=== PATIENT | male | born 1935 | race Caucasian/White ===

== ENCOUNTER 2022-04-22 16:07 | Inpatient (IN) | payer MEDICARE ==
[2022-04-22] MEDS ORDERED: HYDROmorphone 0.5 MG/0.5 ML Syringe IM ONE (17:04)
[2022-04-22] MEDS ORDERED: Doxycycline 100 MG Cap PO ONE (17:52)
[2022-04-22] MEDS ORDERED: Gabapentin 100 MG Cap PO ONE (18:14)
[2022-04-22] MEDS ORDERED: Ketorolac 30 MG/ML SDV IM ONE (20:45)
[2022-04-22] MEDS ORDERED: Lidocaine 1% 5 ML VIAL INJECT ONE (21:35)
[2022-04-22] MEDS ORDERED: Sodium Chloride 0.9% 10 ML Syringe FLUSH PRN (21:54)
[2022-04-22] MEDS ORDERED: Promethazine 6.25 MG in Sodium Chloride 0.9% 50 ML IV PRN (22:26)
[2022-04-22] MEDS ORDERED: Albuterol/Ipratropium 3.0-0.5 MG/3 ML Neb Soln NEB PRN (22:26)
[2022-04-22] MEDS ORDERED: Ondansetron 4 MG Tab.DIS PO PRN (22:26)
[2022-04-22] MEDS ORDERED: oxyCODONE 5 MG Tab PO PRN (22:26)
[2022-04-22] MEDS ORDERED: Acetaminophen 325 MG Tab PO PRN (22:26)
[2022-04-22] MEDS ORDERED: Morphine 2 MG/ML SYRINGE IVPUSH PRN (22:26)
[2022-04-22 23:32] LABS: CORONAVIRUS COVID-19 NAA NEGATIVE (NEGATIVE)
[2022-04-23] MEDS ORDERED: Doxycycline 100 MG Cap PO SCH (02:00)
[2022-04-23] MEDS: Ketorolac 10 MG Tab PO SCH ×4 (02:10→20:35)
[2022-04-23] MEDS: Gabapentin 300 MG Cap PO SCH ×3 (09:49→20:35)
[2022-04-23] MEDS: Doxycycline 100 MG Cap PO SCH ×2 (09:49→20:35)
[2022-04-23] MEDS: Furosemide 20 MG Tab PO SCH (09:49)
[2022-04-23] MEDS: Pantoprazole 40 MG Tab.CR PO SCH (09:55)
[2022-04-23] MEDS: Cetirizine 10 MG Tab PO SCH (20:35)
[2022-04-24] MEDS: Ketorolac 10 MG Tab PO SCH ×4 (02:41→20:57)
[2022-04-24] MEDS: Pantoprazole 40 MG Tab.CR PO SCH (08:04)
[2022-04-24] MEDS: Gabapentin 300 MG Cap PO SCH ×3 (08:04→20:57)
[2022-04-24] MEDS: Doxycycline 100 MG Cap PO SCH ×2 (08:05→20:57)
[2022-04-24] MEDS: Furosemide 20 MG Tab PO SCH (08:06)
[2022-04-24] MEDS: Cetirizine 10 MG Tab PO SCH (20:57)
[2022-04-25] MEDS: Ketorolac 10 MG Tab PO SCH ×4 (02:36→20:18)
[2022-04-25] MEDS: Pantoprazole 40 MG Tab.CR PO SCH (09:00)
[2022-04-25] MEDS: Furosemide 20 MG Tab PO SCH (09:00)
[2022-04-25] MEDS: Gabapentin 300 MG Cap PO SCH ×3 (09:00→20:19)
[2022-04-25] MEDS: Doxycycline 100 MG Cap PO SCH ×2 (09:05→20:18)
[2022-04-25] MEDS: Cetirizine 10 MG Tab PO SCH (20:19)
[2022-04-26] MEDS: Ketorolac 10 MG Tab PO SCH ×4 (02:31→20:37)
[2022-04-26] MEDS: Doxycycline 100 MG Cap PO SCH ×2 (09:02→20:37)
[2022-04-26] MEDS: Pantoprazole 40 MG Tab.CR PO SCH (09:02)
[2022-04-26] MEDS: Gabapentin 300 MG Cap PO SCH ×3 (09:02→20:37)
[2022-04-26] MEDS: Furosemide 20 MG Tab PO SCH (09:02)
[2022-04-26] MEDS: Cetirizine 10 MG Tab PO SCH (20:37)
[2022-04-27] MEDS: Ketorolac 10 MG Tab PO SCH ×4 (02:51→20:22)
[2022-04-27] MEDS: Pantoprazole 40 MG Tab.CR PO SCH (08:20)
[2022-04-27] MEDS: Gabapentin 300 MG Cap PO SCH ×3 (08:20→20:23)
[2022-04-27] MEDS: Furosemide 20 MG Tab PO SCH (08:20)
[2022-04-27] MEDS: Doxycycline 100 MG Cap PO SCH ×2 (08:21→20:23)
[2022-04-27] MEDS: Cetirizine 10 MG Tab PO SCH (20:23)
[2022-04-28] MEDS: Ketorolac 10 MG Tab PO SCH (03:03)
[2022-04-28] MEDS: Furosemide 20 MG Tab PO SCH (08:51)
[2022-04-28] MEDS: Gabapentin 300 MG Cap PO SCH (08:51)
[2022-04-28] MEDS: Doxycycline 100 MG Cap PO SCH (08:51)
[2022-04-28] MEDS: Pantoprazole 40 MG Tab.CR PO SCH (08:51)
[2022-04-29] MEDS ORDERED: Pantoprazole 40 MG Tab.CR PO SCH (07:30)
== END 2022-04-28 14:20 | disposition home or self-care (01) | DRG 565 ==
LOC: JP.ED 16:07 → JP.MS 22:26
PROVIDERS: ADMIT Family Medicine; ATTEND Hospitalist
PROC: 0S9D3ZZ Drainage of Left Knee Joint, Percutaneous Approach (ICD-10-PCS; principal; 2022-04-22)
DX: M25.462 Effusion, left knee (principal); A69.20 Lyme disease, unspecified; M25.562 Pain in left knee; Z20.822 Contact with and (suspected) exposure to COVID-19; H91.90 Unspecified hearing loss, unspecified ear; T14.8XXD Other injury of unspecified body region, subsequent encounter; N42.9 Disorder of prostate, unspecified; Z66 Do not resuscitate; M17.12 Unilateral primary osteoarthritis, left knee; M19.179 Post-traumatic osteoarthritis, unspecified ankle and foot; S70.362A Insect bite (nonvenomous), left thigh, initial encounter; F03.90 Unspecified dementia, unspecified severity, without behavioral disturbance, psychotic disturbance, mood disturbance, and anxiety; Z85.828 Personal history of other malignant neoplasm of skin; Z79.899 Other long term (current) drug therapy; W57.XXXA Bitten or stung by nonvenomous insect and other nonvenomous arthropods, initial encounter
CPT/HCPCS: 0241U; 20610; 36415; 73700-LT; 80048; 80202; 84145; 84550; 85025; 85027; 86140; 86617; 86617-59; 86618; 87070; 87205; 87476; 89050; 89060; 96372; 97110-GP; 97161-GP; 97530-GP; 97535-GP; 99284; 99284-25; A9270-GY; J1170; J1885; J3370; J7050

== ENCOUNTER 2023-10-19 07:24 | Day surgery (SDC) | payer MEDICARE ==
[2023-10-19] MEDS ORDERED: Sodium Chloride 0.9% 10 ML Syringe FLUSH PRN (07:45)
== END 2023-10-19 09:14 | disposition home or self-care (01) ==
LOC: JP.SDS 07:24
PROVIDERS: ATTEND Ophthalmology
DX: H26.9 Unspecified cataract (principal)
CPT/HCPCS: 66984; J3490; V2632

== ENCOUNTER → 2023-11-02 | Day surgery (SDC) | payer MEDICARE ==
[~2023-11-02] MED LIST: Sodium Chloride 0.9% 10 ML Syringe FLUSH PRN
== END ==
LOC: JP.SDS 07:37
PROVIDERS: ATTEND Ophthalmology
DX: H26.9 Unspecified cataract (principal)
CPT/HCPCS: 66984; J3490; V2632

== ENCOUNTER 2023-11-14 20:09 | Inpatient (IN) | payer MEDICARE ==
[2023-11-14 21:59] LABS: BASOPHILS ABSOLUTE AUTO 0.04 K/uL (0.00-0.10); BASOPHILS PERCENT AUTO 0.4 % (0.1-1.3); EOSINOPHILS PERCENT AUTO 0.1 % (0.0-5.4); HEMATOCRIT 50.9 % (38.4-49.7); HEMOGLOBIN 17.4 g/dL (12.9-16.9); IMMATURE GRAN ABSOLUTE AUTO 0.05 K/uL (0.00-0.23); IMMATURE GRAN PERCENT AUTO 0.5 % (0.0-0.7); LYMPHOCYTES ABSOLUTE AUTO 1.44 K/uL (0.8-3.3); LYMPHOCYTES PERCENT AUTO 13.4 % (11.4-47.7); MEAN CORPUSCULAR HEMOGLOBIN 31.6 pg (31.6-35.5); MEAN CORPUSCULAR HGB CONC 34.2 g/dL (31.6-35.5); MEAN CORPUSCULAR VOLUME 92.4 fL (81.4-99.0); MONOCYTES ABSOLUTE AUTO 0.78 K/uL (0.20-0.90); MONOCYTES PERCENT AUTO 7.3 % (3.3-12.6); NEUTROPHILS ABSOLUTE AUTO 8.43 K/uL (1.0-7.6); NEUTROPHILS PERCENT AUTO 78.3 % (40.0-78.1); PLATELET COUNT,PLT 105 K/uL (130-375); RED BLOOD CELL COUNT 5.51 M/uL (4.14-5.76); WHITE BLOOD CELL COUNT,WBC 10.8 K/uL (3.2-11.0)
[2023-11-14 22:00] LABS: EOSINOPHILS ABSOLUTE AUTO 0.01 K/uL (0.00-0.40)
[2023-11-14] MEDS ORDERED: Sodium Chloride 0.9% 50 ML IV SCH (22:15)
[2023-11-14] MEDS ORDERED: Iopamidol 612 MG/ML 100 ML Bottle IV SCH (22:15)
[2023-11-14 22:29] LABS: ANION GAP 14.7 mmol/L (5.0-14.0); C-REACTIVE PROTEIN 5.86 mg/dL (<0.50); CALCIUM 8.4 mg/dL (8.5-10.1); EST CRCL DRUG DOSING (CG) 46.13 mL/min; POTASSIUM,K 4.7 mmol/L (3.6-5.2)
[2023-11-14 22:31] LABS: TROPONIN I HIGH SENSITIVITY 64.9 pg/mL (<=60.3)
[2023-11-14] MEDS ORDERED: Sodium Chloride 0.9% 1,000 ML IV ONE (22:47)
[2023-11-15 01:25] LABS: APPEARANCE,URINE CLEAR (CLEAR); BILIRUBIN,URINE NEGATIVE (NEGATIVE); COLOR,URINE YELLOW (YELLOW); GLUCOSE,URINE NEGATIVE (NEGATIVE); KETONES,URINE 15 mg/dL (NEGATIVE); LEUKOCYTE ESTERASE,URINE NEGATIVE (NEGATIVE); NITRITE,URINE NEGATIVE (NEGATIVE); OCCULT BLOOD,URINE TRACE-LYSED (NEGATIVE); PH,URINE 5.5 (5.0-8.0); PROTEIN,URINE NEGATIVE (NEGATIVE); UROBILINOGEN,URINE 0.2 EU/dL (0.2-1.0)
[2023-11-15 01:38] LABS: AMORPHOUS SEDIMENT,URINE NOT SEEN; BACTERIA,URINE FEW; EPITHELIAL CELLS,URINE FEW; MUCUS,URINE NOT SEEN; RBC,URINE 0-5 (0-5); WBC,URINE 0-5 (0-5)
[2023-11-15] MEDS ORDERED: Promethazine 6.25 MG in Sodium Chloride 0.9% 50 ML IV PRN (02:07)
[2023-11-15] MEDS ORDERED: Ondansetron 4 MG Tab.DIS PO PRN (02:07)
[2023-11-15] MEDS ORDERED: Ondansetron 4 MG/2 ML SDV IV PRN (02:07)
[2023-11-15] MEDS ORDERED: Morphine 2 MG/ML SYRINGE IVPUSH PRN (02:07)
[2023-11-15] MEDS ORDERED: Sodium Chloride 0.9% 1,000 ML IV SCH (02:15)
[2023-11-15] MEDS: oxyCODONE 5 MG Tab PO PRN ×4 (02:47→17:38)
[2023-11-15] MEDS: Sodium Chloride 0.9% 1,000 ML IV SCH ×4 (02:49→21:30)
[2023-11-15 08:15] LABS: CORONAVIRUS COVID-19 NAA NEGATIVE (NEGATIVE); INFLUENZA A NAA NEGATIVE (NEGATIVE); INFLUENZA B NAA NEGATIVE (NEGATIVE); RESPIRATORY SYNCYTIAL VIR NAA NEGATIVE (NEGATIVE)
[2023-11-15] MEDS: Acetaminophen 325 MG Tab PO PRN ×3 (08:49→17:40)
[2023-11-15 14:06] LABS: CALCIUM 7.7 mg/dL (8.5-10.1); EST CRCL DRUG DOSING (CG) 44.4 mL/min; POTASSIUM,K 4.2 mmol/L (3.6-5.2); TROPONIN I HIGH SENSITIVITY 59.9 pg/mL (<=60.3)
[2023-11-15 14:07] LABS: ANION GAP 20.2 mmol/L (5.0-14.0)
[2023-11-15] MEDS ORDERED: Adenosine 6 MG/2 ML SDV IVPUSH ONE ×3 (14:42→17:44)
[2023-11-15] MEDS: Docusate Sodium 100 MG Cap PO PRN (17:40)
[2023-11-15] MEDS ORDERED: Adenosine 6 MG/2 ML SDV ONE (17:46)
[2023-11-15] MEDS: Metoprolol Tartrate 25 MG Tab PO SCH (18:13)
[2023-11-15] MEDS ORDERED: Metoprolol Tartrate 5 MG/5 ML SDV IVPUSH ONE (18:25)
[2023-11-15] MEDS ORDERED: Metoprolol Tartrate 5 MG/5 ML SDV ONE (18:27)
[2023-11-16] MEDS: Metoprolol Tartrate 25 MG Tab PO SCH (01:51)
[2023-11-16] MEDS: Sodium Chloride 0.9% 1,000 ML IV SCH (05:23)
[2023-11-16 06:07] LABS: HEMATOCRIT 44.4 % (38.4-49.7); HEMOGLOBIN 14.8 g/dL (12.9-16.9); MEAN CORPUSCULAR HEMOGLOBIN 31.7 pg (31.6-35.5); MEAN CORPUSCULAR HGB CONC 33.3 g/dL (31.6-35.5); MEAN CORPUSCULAR VOLUME 95.1 fL (81.4-99.0); RED BLOOD CELL COUNT 4.67 M/uL (4.14-5.76); WHITE BLOOD CELL COUNT,WBC 6.2 K/uL (3.2-11.0)
[2023-11-16 06:38] LABS: ANION GAP 10.5 mmol/L (5.0-14.0); CALCIUM 7.5 mg/dL (8.5-10.1); CREATININE 0.9 mg/dL (0.8-1.3); EST CRCL DRUG DOSING (CG) 49.33 mL/min; POTASSIUM,K 4.3 mmol/L (3.6-5.2); PSA SCREEN 0.6 ug/L (0.0-4.0)
[2023-11-16] MEDS: Docusate Sodium 100 MG Cap PO PRN ×2 (07:24→17:12)
[2023-11-16] MEDS: Acetaminophen 325 MG Tab PO PRN ×3 (07:24→17:12)
[2023-11-16] MEDS: oxyCODONE 5 MG Tab PO PRN ×4 (07:37→21:33)
[2023-11-16] MEDS ORDERED: Metoprolol Succinate 25 MG Tab.ER PO SCH (09:00)
[2023-11-16] MEDS ORDERED: Metoprolol Tartrate 5 MG/5 ML SDV IVPUSH ONE ×2 (09:08→14:31)
[2023-11-16] MEDS ORDERED: Sodium Chloride 0.9% 1,000 ML IV SCH (13:27)
[2023-11-17] MEDS: Acetaminophen 325 MG Tab PO PRN ×5 (02:06→21:39)
[2023-11-17] MEDS: oxyCODONE 5 MG Tab PO PRN ×5 (02:06→21:39)
[2023-11-17 04:49] LABS: HEMATOCRIT 43.5 % (38.4-49.7); HEMOGLOBIN 14.4 g/dL (12.9-16.9); MEAN CORPUSCULAR HEMOGLOBIN 31.3 pg (31.6-35.5); MEAN CORPUSCULAR HGB CONC 33.1 g/dL (31.6-35.5); MEAN CORPUSCULAR VOLUME 94.6 fL (81.4-99.0); RED BLOOD CELL COUNT 4.6 M/uL (4.14-5.76); WHITE BLOOD CELL COUNT,WBC 5.7 K/uL (3.2-11.0)
[2023-11-17 06:06] LABS: CALCIUM 7.4 mg/dL (8.5-10.1); CREATININE 0.9 mg/dL (0.8-1.3); EST CRCL DRUG DOSING (CG) 49.33 mL/min
[2023-11-17] MEDS ORDERED: Metoprolol Succinate 25 MG Tab.ER PO SCH (09:00)
[2023-11-17] MEDS: Metoprolol Succinate 50 MG Tab.ER PO SCH (09:29)
[2023-11-17] MEDS: Polyethylene Glycol 3350 Powder 17 GM Packet PO SCH (09:38)
[2023-11-17] MEDS: Docusate Sodium 100 MG Cap PO PRN (17:05)
[2023-11-18] MEDS: Polyethylene Glycol 3350 Powder 17 GM Packet PO SCH (08:38)
[2023-11-18] MEDS: Metoprolol Succinate 50 MG Tab.ER PO SCH (08:38)
[2023-11-18] MEDS: Acetaminophen 325 MG Tab PO PRN (10:21)
[2023-11-18] MEDS: oxyCODONE 5 MG Tab PO PRN (10:21)
[2023-11-19 04:04] LABS: HEMATOCRIT 45.6 % (38.4-49.7); HEMOGLOBIN 15.9 g/dL (12.9-16.9); MEAN CORPUSCULAR HEMOGLOBIN 31.9 pg (31.6-35.5); MEAN CORPUSCULAR HGB CONC 34.9 g/dL (31.6-35.5); MEAN CORPUSCULAR VOLUME 91.6 fL (81.4-99.0); RED BLOOD CELL COUNT 4.98 M/uL (4.14-5.76); WHITE BLOOD CELL COUNT,WBC 6.3 K/uL (3.2-11.0)
[2023-11-19] MEDS: Metoprolol Succinate 50 MG Tab.ER PO SCH (08:22)
[2023-11-19] MEDS: Polyethylene Glycol 3350 Powder 17 GM Packet PO SCH (08:22)
[2023-11-19] MEDS: Acetaminophen 325 MG Tab PO PRN (08:24)
[2023-11-20] MEDS: oxyCODONE 5 MG Tab PO PRN (05:19)
[2023-11-20] MEDS: Acetaminophen 325 MG Tab PO PRN (05:19)
[2023-11-20] MEDS: Metoprolol Succinate 50 MG Tab.ER PO SCH (08:02)
[2023-11-20] MEDS: Polyethylene Glycol 3350 Powder 17 GM Packet PO SCH (08:02)
[2023-11-21] MEDS: Metoprolol Succinate 50 MG Tab.ER PO SCH (08:59)
[2023-11-21] MEDS: Polyethylene Glycol 3350 Powder 17 GM Packet PO SCH (08:59)
== END 2023-11-21 13:31 | DRG 184 ==
LOC: JP.ED 20:09 → JP.MS 11-15 02:01
PROVIDERS: ADMIT Family Medicine; ATTEND Hospitalist
DX: M62.82 Rhabdomyolysis (principal); S22.41XA Multiple fractures of ribs, right side, initial encounter for closed fracture; I47.10 Supraventricular tachycardia, unspecified; T79.6XXA Traumatic ischemia of muscle, initial encounter; F03.90 Unspecified dementia, unspecified severity, without behavioral disturbance, psychotic disturbance, mood disturbance, and anxiety; H91.90 Unspecified hearing loss, unspecified ear; I10 Essential (primary) hypertension; R79.89 Other specified abnormal findings of blood chemistry; Z87.81 Personal history of (healed) traumatic fracture; Z79.899 Other long term (current) drug therapy; Z91.81 History of falling; Z98.49 Cataract extraction status, unspecified eye; Z98.890 Other specified postprocedural states; Z11.52 Encounter for screening for COVID-19; W19.XXXA Unspecified fall, initial encounter
CPT/HCPCS: 0241U; 36415; 70450; 71260; 72125; 74177; 76377; 80048; 81001; 82550; 83605; 83735; 84484; 85025; 85027; 86140; 93005; 93010; 96360; 97110-GO; 97110-GP; 97162-GP; 97165-GO; 97530-GP; 97535-GO; 97535-GP; 99232; 99238; 99285; 99285-25; A9270-GY; G0103; J0153; J3490; J7030; Q9967; U0002

== ENCOUNTER 2024-07-27 12:56 | Emergency (ER) | payer MEDICARE ==
[2024-07-27 15:07] LABS: BASOPHILS ABSOLUTE AUTO 0.05 K/uL (0.00-0.10); BASOPHILS PERCENT AUTO 0.6 % (0.1-1.3); EOSINOPHILS ABSOLUTE AUTO 0.04 K/uL (0.00-0.40); EOSINOPHILS PERCENT AUTO 0.4 % (0.0-5.4); HEMATOCRIT 40.4 % (38.4-49.7); HEMOGLOBIN 14.1 g/dL (12.9-16.9); IMMATURE GRAN ABSOLUTE AUTO 0.05 K/uL (0.00-0.23); IMMATURE GRAN PERCENT AUTO 0.6 % (0.0-0.7); LYMPHOCYTES ABSOLUTE AUTO 1.53 K/uL (0.8-3.3); LYMPHOCYTES PERCENT AUTO 16.9 % (11.4-47.7); MEAN CORPUSCULAR HEMOGLOBIN 32.7 pg (31.6-35.5); MEAN CORPUSCULAR HGB CONC 34.9 g/dL (31.6-35.5); MEAN CORPUSCULAR VOLUME 93.7 fL (81.4-99.0); MONOCYTES PERCENT AUTO 13.3 % (3.3-12.6); NEUTROPHILS ABSOLUTE AUTO 6.17 K/uL (1.0-7.6); NEUTROPHILS PERCENT AUTO 68.2 % (40.0-78.1); PLATELET COUNT,PLT 135 K/uL (130-375); RED BLOOD CELL COUNT 4.31 M/uL (4.14-5.76)
[2024-07-27 15:27] LABS: ALANINE AMINOTRANSFERASE,ALT 81 U/L (12-78); ALBUMIN 3.2 g/dL (3.4-5.0); ALKALINE PHOSPHATASE 238 U/L (46-116); ANION GAP 11.1 mmol/L (5.0-14.0); ASPARTATE AMNIOTRANSFERASE,AST 66 U/L (15-37); BILIRUBIN TOTAL 0.8 mg/dL (0.2-1.0); BLOOD UREA NITROGEN,BUN 19 mg/dL (7-18); CALCIUM 9.2 mg/dL (8.5-10.1); CARBON DIOXIDE,CO2 26 mmol/L (21-32); CHLORIDE,CL 106 mmol/L (100-108); CREATININE 0.9 mg/dL (0.8-1.3); EST CRCL DRUG DOSING (CG) 44.66 mL/min; ESTIMATED GFR 83 mL/min (>60); GLUCOSE RANDOM 102 mg/dL (74-106); PROTEIN TOTAL,TP 6.5 g/dL (6.4-8.2); SODIUM,NA 143 mmol/L (140-148)
[2024-07-27] MEDS: Cephalexin 250 MG Cap PO ONE (17:49)
[2024-07-27] MEDS: Furosemide 20 MG Tab PO ONE (17:49)
== END 2024-07-27 18:06 | disposition home or self-care (01) ==
LOC: JP.ED 12:56
DX: L03.116 Cellulitis of left lower limb (principal); R60.0 Localized edema; I10 Essential (primary) hypertension; Z87.891 Personal history of nicotine dependence; Z79.899 Other long term (current) drug therapy
CPT/HCPCS: 36415; 80053; 85025; 93971; 99284; A9270